=== PATIENT | male | born 1995 | race Caucasian/White ===

== ENCOUNTER 2023-09-26 15:45 | Emergency (ER) | payer OTHER ==
[~2023-09-26] VITALS: Ht 167.6 cm; Wt 86.2 kg
[2023-09-26 16:09] VITALS: BP 99/64; PULSE 63; RESP 18; TEMP 97.8; O2SAT 95
[2023-09-26] MEDS: IBUPROFEN 600 MG TAB PO ONE (17:19)
[2023-09-26] MEDS ORDERED: BACI-418 TP (17:42)
[2023-09-26] MEDS ORDERED: IBUP-2213 PO (17:42)
[2023-09-26] MEDS ORDERED: CEPH-588 PO (17:42)
[2023-09-26] MEDS: BACITRACIN OINT 500 UNITS/GM PKT TP ONE (17:55)
== END 2023-09-26 18:05 | disposition home or self-care (01) ==
LOC: MED 15:45
DX: S91.331A Puncture wound without foreign body, right foot, initial encounter (principal); R53.1 Weakness; R03.0 Elevated blood-pressure reading, without diagnosis of hypertension; Z79.1 Long term (current) use of non-steroidal anti-inflammatories (NSAID); Z79.899 Other long term (current) drug therapy; W22.8XXA Striking against or struck by other objects, initial encounter; Y93.89 Activity, other specified; Y92.89 Other specified places as the place of occurrence of the external cause; Y99.8 Other external cause status
CPT/HCPCS: 73630; 90471; 90715; 99283